=== PATIENT | male | born 1995 | race Two or more races ===

== ENCOUNTER 2016-11-11 15:32 | Emergency (ER) | payer MEDICAID ==
[~2016-11-11] VITALS: Ht 170.2 cm; Wt 116.6 kg
[2016-11-11 19:12] VITALS: BP 148/79
== END 2016-11-11 19:12 | disposition home or self-care (01) ==
LOC: ER 15:37
DX: S01.401D Unspecified open wound of right cheek and temporomandibular area, subsequent encounter (principal); X58.XXXD Exposure to other specified factors, subsequent encounter

== ENCOUNTER 2021-03-16 10:18 | Emergency (ER) | payer BC, OTHER ==
[~2021-03-16] VITALS: Ht 170.2 cm; Wt 81.6 kg
[2021-03-16] MEDS ORDERED: cefTRIAXone 1GM/50ML D5W 50 ML IV ONE (13:45)
[2021-03-16] MEDS ORDERED: ONDANSETRON ODT 4 MG TAB PO ONE (13:45)
[2021-03-16] MEDS ORDERED: CLINDAMYCIN 900MG IV 50 ML IV ONE (13:45)
[2021-03-16] MEDS ORDERED: MORPHINE SULFATE INJECTION 2 MG/ML SYRG IV ONE (13:45)
[2021-03-16 14:26] LABS: Basophils # (auto) 0.1 10 ^3/uL (0-0.2); Basophils % (auto) 0.4 % (0.0-2.0); Eosinophils # (auto) 0.2 10 ^3/uL (0-0.8); Eosinophils % (auto) 1.1 % (0.0-7.0); Hematocrit 45.4 % (41.0-53.0); Hemoglobin 15.2 g/dL (13.5-17.5); Lymphocytes # (auto) 1.6 10 ^3/uL (0.4-5.4); Lymphocytes % (auto) 10.8 % (10.0-50.0); Mean Corpuscular Hemoglobin 29.8 pg (28.0-32.0); Mean Corpuscular Hgb Conc. 33.6 g/dL (32.0-36.0); Mean Corpuscular Volume 88.6 fL (80.0-100.0); Monocytes # (auto) 1.2 10 ^3/uL (0-1.3); Monocytes % (auto) 8.4 % (0.0-12.0); Neutrophils # (auto) 11.7 10 ^3/uL (1.6-8.6); Neutrophils % (auto) 79.3 % (37.0-80.0); Red Blood Cells 5.12 10^6/uL (4.5-5.90); White Blood Cell 14.8 10^3/uL (4.4-10.8)
[2021-03-16 14:35] VITALS: BP 131/66
[2021-03-16 14:41] LABS: Albumin 4.1 g/dL (3.4-5.0); Calcium 8.8 mg/dL (8.5-10.1); Potassium 3.8 mmol/L (3.5-5.1)
[2021-03-16 14:43] LABS: BUN/Creatinine Ratio 13.2
[2021-03-16 14:45] LABS: Bilirubin, Total 0.7 mg/dL (0.2-1.0); Total Protein 7.9 g/dL (6.4-8.2)
[2021-03-16] MEDS ORDERED: CEPH-509 PO (15:40)
[2021-03-16] MEDS ORDERED: CLIN300C8 PO (15:40)
[2021-03-16] MEDS ORDERED: ACET-1158 PO (15:42)
== END 2021-03-16 15:59 | disposition home or self-care (01) ==
LOC: ER 10:18
DX: S30.861A Insect bite (nonvenomous) of abdominal wall, initial encounter (principal); L03.311 Cellulitis of abdominal wall; F12.10 Cannabis abuse, uncomplicated; W57.XXXA Bitten or stung by nonvenomous insect and other nonvenomous arthropods, initial encounter; Y93.89 Activity, other specified; Y92.89 Other specified places as the place of occurrence of the external cause; Y99.8 Other external cause status
CPT/HCPCS: 36415; 74177; 80053; 83605; 85025; 87040; 96365; 96368; 96375; 99284; J0696; J2270; J3490; Q0162